=== PATIENT | male | born 1950 | race Caucasian/White ===

== ENCOUNTER 2020-07-22 08:37 | Day surgery (SDC) | payer MEDICARE, BC ==
[~2020-07-22] VITALS: Ht 177.8 cm; Wt 96.4 kg
--- NOTE | ~2020-07-22 | OP ---
PATIENT NAME: ROCÍO OATES MEDICAL RECORD: [id number] :52 LOCATION:D.OPS ADMISSION DATE: SURGEON: JOVI SCHMITT MD DATE OF OPERATION: 07/22/2020 PREOPERATIVE DIAGNOSES: 1. Iron deficiency anemia. 2. Arteriovenous malformation of the stomach. POSTOPERATIVE DIAGNOSES: 1. Iron deficiency anemia. 2. Arteriovenous malformation of the stomach. PROCEDURE: 1. Esophagogastroduodenoscopy without biopsies. 2. Argon plasma coagulation ablation of arteriovenous malformation of the stomach. SURGEON: Jovi Schmitt MD SLOT FLOORPERSON: None. BLOOD LOSS: Minimal. ANESTHESIA: IV sedation. COMPLICATIONS: None. OPERATIVE COURSE: The patient was conveyed to the endoscopy suite electively on 07/22/2020. IV sedation was induced by the anesthesia staff. A bite block was inserted. A gastroscope was inserted into the mouth. This was advanced easily into the hypopharynx. The esophagus was easily intubated as were the stomach and duodenum. Retroflexed and angulus views were obtained. I visualized the stomach utilizing normal imaging as well as a narrow band imaging. There were arteriovenous malformations in the antrum and these were thoroughly ablated with the argon plasma veneer marker utilizing the stomach setting in the forced mode. The endoscope was then withdrawn under direct vision. There is no need for the patient to follow up with me in the office unless he develops a complication related to this operative procedure. I am going to return his endoscopic care back over to Dr. Sánchez. TRANSINT:[id number] Voice Confirmation ID: [id number] DOCUMENT ID: [id number] cc: Dr. Frank Ruiz, [place] JOVI SCHMITT MD CC: LEE SÁNCHEZ MD and CLAUDE FINE MD [id number] DICTATION DATE: 07/22/20 1508 DIVISION OPERATIONS MANAGER: 07/22/20 2305 [facility] 07/22/20 [place] [address]
[2020-07-22 09:12] LABS: BASOPHILS 0 % (0-2); EOSINOPHILS 1.1 % (0-7); HEMOGLOBIN 15.4 g/dL (13.5-17.5); IMMATURE GRANULOCYTES 0.2 % (0-5); LYMPHOCYTE ABS# 1.29 10x3/uL (1.32-3.57); LYMPHOCYTES 27.2 % (15-50); MCH 28.8 pg (26.0-34.0); MCHC 34.2 g/dL (31.0-37.0); MCV 84.1 fL (80.0-100.0); MONOCYTES 9.1 % (2-11); NEUTROPHIL ABS# 2.97 10x3/uL (1.78-5.38); NEUTROPHILS 62.4 % (40-80); PLATELET COUNT 101 10x3/uL (130-400); RBC 5.35 10x6/uL (4.20-6.10); RDW 15.3 % (11.5-14.5); WBC 4.8 10x3/uL (4.8-10.8)
[2020-07-22 09:19] LABS: ALBUMIN 3.7 g/dL (3.4-5.0); ANION GAP 10.7 mmol/L (8-16); BILIRUBIN - TOTAL 0.9 mg/dL (0.2-1.3); CALCIUM 9.5 mg/dL (8.5-10.1); CARBON DIOXIDE 29.6 mmol/L (21.0-32.0); CREATININE - SERUM 1.3 mg/dL (0.6-1.3); POTASSIUM - SERUM 4.3 mmol/L (3.5-5.1); PROTEIN - SERUM 7.9 g/dL (6.4-8.2)
[2020-07-22 10:21] VITALS: BP 161/57; Ht 177.8 cm; Wt 96.4 kg
--- NOTE | 2020-07-22 10:27 | NUR ---
20G IV STARTED IN RIGHT WRIST
[2020-07-22] MEDS ORDERED: NORVASC5 MG PO (10:35)
[2020-07-22] MEDS ORDERED: NORVASC5 MG (10:35)
[2020-07-22] MEDS ORDERED: CARAFATE1 G/10 ML PO (10:36)
[2020-07-22] MEDS ORDERED: CARVEDILOL TAB 3.1 PO (10:38)
[2020-07-22] MEDS ORDERED: HYTRIN5 MG (10:39)
[2020-07-22] MEDS ORDERED: PROTONIX40 MG PO (10:40)
[2020-07-22] MEDS ORDERED: COREG 3.1253.125 MG PO (10:40)
[2020-07-22] MEDS ORDERED: TYLENOL W/CODEI1 TAB (10:42)
--- NOTE | 2020-07-22 15:49 | NUR ---
DC INSTRUCTIONS GIVEN TO PT. STATES UNDERSTANDING. DC'D IV CATH FULLY INTACT. WILL DC SHORTLY.
--- NOTE | 2020-07-22 15:50 | NUR ---
PT LEFT UNIT VIA WC AT 1553
== END 2020-07-22 15:53 | disposition home or self-care (01) ==
LOC: D.OPS 08:37
PROVIDERS: Anesthesiology; ATTEND Surgery
DX: D50.9 Iron deficiency anemia, unspecified (principal); Q27.33 Arteriovenous malformation of digestive system vessel; I10 Essential (primary) hypertension; K29.70 Gastritis, unspecified, without bleeding